=== PATIENT | female | born 2000 | race Caucasian/White ===

== ENCOUNTER 2021-03-16 07:56 | Emergency (ER) | payer OTHER ==
[2021-03-16 08:04] VITALS: BP 104/67; PULSE 82; TEMP 98.4; BMI 21.9
[2021-03-16] MEDS ORDERED: LACTATED RINGERS SOLUTION 1,000 ML/1,000 ML INFUS.BAG IV SCH (08:30)
[2021-03-16] MEDS ORDERED: FAMOTIDINE 20 MG/50 ML IVPB 20 MG/50 ML MG IVPB ONE ×2 (08:31→08:41)
[2021-03-16] MEDS ORDERED: MAG HYDROX/AL HYDROX/SIMETH 30 ML UNIT-DOSE CUP PO ONE (08:31)
[2021-03-16] MEDS ORDERED: ONDANSETRON 4 MG/2 ML VIAL IVPUSH ONE (08:31)
[2021-03-16] MEDS ORDERED: MAG HYDROX/AL HYDROX/SIMETH 30 ML UNIT-DOSE CUP ONE (08:40)
[2021-03-16] MEDS ORDERED: ONDANSETRON 4 MG/2 ML VIAL ONE (08:41)
[2021-03-16 09:07] LABS: HEMATOCRIT 37.8 % (32.4-45.2); MCH 28.7 pg (25.7-33.7); MCHC 34.3 g/dl (32.0-36.0); MEAN CELL VOLUME 83.6 fl (80-96); MEAN PLT VOLUME 9.4 fl (7.5-11.1); PLATELET COUNT 252 10^3/uL (134-434); RBC 4.52 M/mm3 (3.60-5.2); RDW 12.8 % (11.6-15.6); WHITE BLOOD COUNT 16.2 K/mm3 (4.0-10.0)
[2021-03-16 10:34] LABS: ALBUMIN 4.7 g/dl (3.4-5.0); BILIRUBIN,TOTAL 0.7 mg/dL (0.2-1); BLOOD UREA NITROGEN 10.2 mg/dL (7-18); CALCIUM 9.7 mg/dL (8.5-10.1); CREATININE 0.9 mg/dL (0.55-1.3); TOT PROT 8.5 g/dl (6.4-8.2)
== END 2021-03-16 11:13 | disposition home or self-care (01) ==
LOC: JER 07:56
PROC: 3E033NZ Introduction of Analgesics, Hypnotics, Sedatives into Peripheral Vein, Percutaneous Approach (ICD-10-PCS; principal; 2021-03-16)
PROC: 3E033GC Introduction of Other Therapeutic Substance into Peripheral Vein, Percutaneous Approach (ICD-10-PCS; 2021-03-16)
DX: R11.0 Nausea (principal)
CPT/HCPCS: 36415; 80053; 84703; 85027; 96365; 96375; 99284-25

== ENCOUNTER 2022-06-27 19:51 | Emergency (ER) | payer OTHER ==
[2022-06-27 20:37] VITALS: BP 106/69; PULSE 100; RESP 20; TEMP 98.1; BMI 21.5
[2022-06-27] MEDS ORDERED: SODIUM CHLORIDE 1,000 ML IV STA (23:20)
[2022-06-27] MEDS ORDERED: ONDANSETRON 4 MG/2 ML VIAL IVPUSH ONE (23:20)
[2022-06-27] MEDS ORDERED: ONDANSETRON 4 MG/2 ML VIAL ONE (23:32)
[2022-06-27 23:45] LABS: BASO % 1.6 % (0-2.0); EOS % 0.3 % (0-4.5); HEMATOCRIT 41.2 % (32.4-45.2); LYMPH % 5.2 % (8-40); MCH 28.7 pg (25.7-33.7); MCHC 33.9 g/dl (32.0-36.0); MEAN CELL VOLUME 84.5 fl (80-96); MEAN PLT VOLUME 8.9 fl (7.5-11.1); MONO % 5.3 % (3.8-10.2); NEUT % 87.6 % (42.8-82.8); PLATELET COUNT 308 10^3/uL (134-434); RBC 4.87 M/mm3 (3.60-5.2); RDW 12.7 % (11.6-15.6); WHITE BLOOD COUNT 16.1 K/mm3 (4.0-10.0)
[2022-06-27 23:57] LABS: CHLORIDE 102 mmol/L (98-107); SODIUM 140 mmol/L (136-145)
[2022-06-27 23:59] LABS: ALBUMIN 4.7 g/dl (3.4-5.0); ANION GAP 8 MMOL/L (8-16); CO2 30 mmol/L (21-32); LIPASE 79 U/L (73-393)
[2022-06-28 00:01] LABS: BLOOD UREA NITROGEN 19.5 mg/dL (7-18); GLUCOSE,RANDOM 153 mg/dL (74-106)
[2022-06-28 00:03] LABS: CREATININE 0.9 mg/dL (0.55-1.3); SGOT/AST 43 U/L (15-37); SGPT/ALT 41 U/L (13-61)
[2022-06-28 00:04] LABS: BILIRUBIN,TOTAL 0.8 mg/dL (0.2-1); EPI CELLS 33 /uL (0-25.1); HYALINE CASTS 5 /uL (0-3.1); PH,URINE 5.5 (5.0-8.0); TOT PROT 8.7 g/dl (6.4-8.2); URINE APPEARANCE CLEAR; URINE BACTERIA 366 /uL (0-1359); URINE BILIRUBIN NEGATIVE (NEGATIVE); URINE COLOR YELLOW; URINE GLUCOSE (UA) NEGATIVE (NEGATIVE); URINE KETONE 1+ (NEGATIVE); URINE LEUK ESTERASE NEGATIVE (NEGATIVE); URINE NITRITE NEGATIVE (NEGATIVE); URINE PROTEIN 1+ (NEGATIVE); URINE RBC 11 /uL (0-23.9); URINE WBC 14 /uL (0-25.8)
[2022-06-28 00:05] LABS: HCG,QUALITATIVE URINE Negative
[2022-06-28 00:06] LABS: ALK PHOS 56 U/L (45-117)
[2022-06-28 05:18] LABS: ANISOCYTOSIS 3+; MACROCYTOSIS 0; ROULEAU 1+
== END 2022-06-28 01:10 | disposition home or self-care (01) ==
LOC: JER 19:51
PROC: 3E033GC Introduction of Other Therapeutic Substance into Peripheral Vein, Percutaneous Approach (ICD-10-PCS; principal; 2022-06-27)
DX: A08.4 Viral intestinal infection, unspecified (principal)
CPT/HCPCS: 36415; 80053; 81003; 83690; 84484; 84703; 85025; 87086; 93005; 93010; 96361; 96374; 99284-25